=== PATIENT | female | born 1965 | race American Indian/Alaskan Native ===

== ENCOUNTER 2017-05-18 10:04 | Outpatient (CLI) | payer OTHER ==
--- NOTE | 2017-05-18 10:46 | XRay Report ---
RIGHT FOOT, 2 VIEWS History: Right foot pain. Findings: No recent comparison. There is been previous amputation of the great toe and distal first metatarsal, correlate with history. A surgical screw is in place at the second metatarsal neck, correlate with history. Osteopenia is evident. No acute fracture or bony destruction is identified. The midfoot bones have fused. There is mild distal soft tissue swelling. Impression: Chronic findings outlined above. No acute process noted.
--- NOTE | 2017-05-18 10:47 | XRay Report ---
AP AND LATERAL LUMBOSACRAL SPINE: History: Back pain. There is mild levoscoliosis in the lumbar region estimated at 10 degrees. 4 mm anterolisthesis of L4 with respect to L5 on the lateral view appears to be secondary to degenerative facet arthropathy. There is moderate degenerative disc disease and facet arthropathy at all levels. No compression deformity or bone lesion is identified. The sacrum and SI joints are unremarkable. IMPRESSION: Levoscoliosis with degenerative changes. Grade 1 anterolisthesis of L4 with respect L5. No acute process noted.
== END 2017-05-18 10:05 | disposition home or self-care (01) ==
LOC: XRAY 10:04
PROVIDERS: ATTEND Internal Medicine
DX: M41.86 Other forms of scoliosis, lumbar region (principal); M47.896 Other spondylosis, lumbar region; M51.37 Other intervertebral disc degeneration, lumbosacral region; M85.871 Other specified disorders of bone density and structure, right ankle and foot; Z89.421 Acquired absence of other right toe(s)
CPT/HCPCS: 72100